=== PATIENT | male | born 1960 | race Caucasian/White ===

== ENCOUNTER 2020-05-15 06:15 | Day surgery (SDC) | payer OTHER ==
[~2020-05-15] VITALS: Ht 182.9 cm; Wt 109.8 kg
[~2020-05-15 06:15] MED LIST: EFFEXOR XR150 MG PO; GLIPIZIDE ER2.5 MG PO; GLUCOPHAGE1000 MG PO; NORCO 10-325 T1 EACH PO; TRIBENZOR 40-51 EAC1 PO; WELLBUTRIN XL150 MG PO
--- NOTE | 2020-05-15 09:24 | OR ---
[facility] [address], [place] [address] Signed DATE OF OPERATION: 05/15/2020 SURGEON: Bel Lemon MD PREOPERATIVE DIAGNOSIS: Paternal grandmother with colon cancer in her 70s. POSTOPERATIVE DIAGNOSES: 1. Minimal sigmoid diverticulosis. 2. Minimal internal and external hemorrhoids. PROCEDURE: Colonoscopy without biopsy. ESTIMATED BLOOD LOSS: None. INDICATIONS: Sedrick is a 59-year-old gentleman, asked to see me for a colonoscopy. His paternal grandmother had colon cancer in her 70s. Tab underwent a colonoscopy at age 39 for what sounds like an anal fissure. Otherwise, he describes a sphincterotomy. He has no lower GI complaints currently. In the office, I gave Sedrick a booklet on colonoscopy. We looked at the nature of the test along with the risks including, but not limited to gas bloating, crampy abdominal pain, bleeding, perforation requiring surgery, and missed diagnosis. We also discussed the need for IV conscious sedation. He had expressed understanding and wished to proceed. DESCRIPTION OF PROCEDURE: Sedrick was taken into our endoscopy suite and placed in the left lateral decubitus position. He was given a total of 6 mg of Versed and 100 mcg of fentanyl. A digital rectal exam was performed and he has good sphincter tone. He does have a small external hemorrhoid tissue. His prostate is enlarged and indurated and slightly more prominent on the left than the right. The adult colonoscope was then introduced and advanced all around into the cecum under direct visualization of camera without difficulty. His prep was slightly below average. Unfortunately, it was extended from the cecum all the way back to the anus. Consequently, he should consider a double bowel prep in the future. The scope was slowly withdrawn. We saw few diverticula in the left sigmoid colon. They were small to moderate in size, few in number, and scattered about. The rectum itself was unremarkable. Upon retroflexion of scope, he has very small internal hemorrhoid columns as well. After this, the gas was suctioned out and the colonoscope removed. Electronically Signed By: BEL LEMON MD 05/15/20 0924 PATIENT NAME: SEDRICK PERKINS OPERATIVE REPORT DATE OF : 60 REPORT #: [id number] PHYSICIAN: BEL LEMON MD PCP: GIAN SOSA MD REPORT IS CONFIDENTIAL AND NOT TO BE RELEASED WITHOUT AUTHORIZATION [facility] [address], [place] [address] Signed Sedrick tolerated the procedure quite well. RECOMMENDATIONS: I will see Tab back in 5 years for repeat colonoscopy due to his family history. Bel Lemno MD ALB/MODL /[id number] cc: MD Bel Sommer MD Copies: GIAN SOSA MD, ANDREW L MD ~ Electronically Signed By: BEL LEMON MD 05/15/20 0924 PATIENT NAME: SEDRICK PERKINS HANNA OPERATIVE REPORT DATE OF : 60 REPORT #: [id number] PHYSICIAN: BEL LEMON MD PCP: GIAN SOSA MD REPORT IS CONFIDENTIAL AND NOT TO BE RELEASED WITHOUT AUTHORIZATION
== END 2020-05-15 08:46 | disposition home or self-care (01) ==
LOC: OPS 06:15 → DS 06:15 → OPS 06:45
PROVIDERS: Colon & Rectal Surgery
PROC: 0DJD8ZZ Inspection of Lower Intestinal Tract, Via Natural or Artificial Opening Endoscopic (ICD-10-PCS; principal; 2020-05-15 06:45)
DX: Z12.11 Encounter for screening for malignant neoplasm of colon (principal); K64.8 Other hemorrhoids; K64.4 Residual hemorrhoidal skin tags; K57.30 Diverticulosis of large intestine without perforation or abscess without bleeding; Z80.0 Family history of malignant neoplasm of digestive organs; Z79.899 Other long term (current) drug therapy; Z79.84 Long term (current) use of oral hypoglycemic drugs
CPT/HCPCS: 99153; G0500; J2250; J3010; J7121

== ENCOUNTER 2020-06-15 07:19 | Emergency (ER) | payer OTHER ==
[~2020-06-15] VITALS: Ht 182.9 cm; Wt 109.8 kg
--- OUTSIDE RECORDS SUMMARY | ~2020-06-15 | XMS | Encounter Summary ---
Demographics + + + | Address | [address] | | | [place] [address] | + + + | Home Phone | | + + + | Preferred Language | Unknown | + + + | Marital Status | | + + + | Restorationism Affiliation | Unknown | + + + | Race | Unknown | + + + | Ethnic Group | Unknown | + + + Author + + + | Author | [facility] | | | and [place] | + + + | Organization | [facility] | | | and [place] | + + + | Address | Unknown | + + + | Phone | Unavailable | + + + Support + + +---------+ + | Name | Relationship | Address | Phone | + + +---------+ + | Per Pt None To List | ECON | Unknown | Unavailable | + + +---------+ + Care Team Providers + +------+ + | Care Watch Guard Gate Name | Role | Phone | + +------+ + PCP | Unavailable | + +------+ + Encounter Details +--------+ + + + + | Date | Type | Department | Care Team | Description | +--------+ + + + + | 04/26/ | [facility] | [facility] | Vlad Watson | | | 2001 | Encounter | MED CTR SLEEP | MD Sly [address] | | | | | [place] [address] | [facility] | | | | | [place] | [place] [address] | | | | | [address] | [phone] | | | | | [phone] | | | +--------+ + + + + Social History + +-------+ +--------+------+ | Tobacco Use | Types | Packs/Day | Years | Date | | | | | Used | | + +-------+ +--------+------+ | Never Assessed | | | | | + +-------+ +--------+------+ + + + | Sex Assigned at | Date Recorded | | | | + + + | Not on file | | + + + documented as of this encounter Plan of Treatment Not on filedocumented as of this encounter Visit Diagnoses Not on filedocumented in this encounter"
--- OUTSIDE RECORDS SUMMARY | ~2020-06-15 | XMS | Clinical Summary ---
Demographics + + + | Address | [address] | | | [place] [address] | + + + | Home Phone | | + + + | Preferred Language | Unknown | + + + | Marital Status | | + + + | Denominational Affiliation | Unknown | + + + | Race | Unknown | + + + | Ethnic Group | Unknown | + + + Author + + + | Author | [facility] | | | and [place] | + + + | Organization | [facility] | | | and [place] | [...] Team Providers + +------+ + | Care Information Systems Security Officer Name | Role | Phone | + +------+ + PCP | Unavailable | + +------+ + Allergies Not on File Medications Not on file Active Problems Not on file Social History + +-------+ +--------+------+ | Tobacco [...] on file | | + + + Last Filed Vital Signs Not on file Plan of Treatment + + +-------+ + | Health Maintenance | Due Date | Last | Comments | | | | Done | | + + +-------+ + | Vaccine: | | | | | Dtap/Tdap/Td (1 - | 9 | | | | Tdap) | | | | + + +-------+ + | Vaccine: Zoster (1 | | | | | of 2) | 0 | | | + + +-------+ + | Vaccine: Influenza | | | | | (#1) | 0 | | | + + +-------+ + Results Not on filefrom Last 3 Months"
--- OUTSIDE RECORDS SUMMARY | ~2020-06-15 | XMS | Encounter Summary ---
Demographics + + + | Address | [address] | | | [place] [address] | + + + | Home Phone | | + + + | Preferred Language | Unknown | + + + | Marital Status | | + + + | Synagogue Affiliation | Unknown | + + + | Race | Unknown | + + + | Ethnic Group | Unknown | + + + Author + + + | Author | [facility] | | | and [place] | + + + | Organization | [facility] | | | and [place] | [...] Team Providers + +------+ + | Care In School Suspension Aide Name | Role | Phone | + +------+ + PCP | Unavailable | + +------+ + Encounter Details +--------+ + + + + | Date | Type | Department | Care Team | Description | +--------+ + + + + | 05/14/ | [facility] | [facility] | Vlad Watson | | | 2001 | Encounter | MED CTR SLEEP | MD Sly [address] | | | | | [place] [address] | [place] [facility] | | | | | [place] | [place] [address] | | | | | [address] | [phone] | | | | | [phone] | | | +--------+ + + + [...]
--- OUTSIDE RECORDS SUMMARY | ~2020-06-15 | XMS | Encounter Summary ---
Demographics + + + | Address | [address] | | | [place] [address] | + + + | Home Phone | | + + + | Preferred Language | Unknown | + + + | Marital Status | | + + + | Jew Affiliation | Unknown | + + + | Race | Unknown | + + + | Ethnic Group | Unknown | + + + Author + + + | Author | [facility] | | | and [place] | + + + | Organization | [facility] | | | and [place] [...] Team Providers + +------+ + | Care Cosmetician Apprentice Name | Role | Phone | + +------+ + PCP | Unavailable | + +------+ + Encounter Details +--------+ + + + + | Date | Type | Department | Care Team | Description | +--------+ + + + + | 01/27/ | Hospital | [facility] | | | | 2003 - | Encounter | MED CTR CANCER | | | | | | [place] [address] | | | | 05/04/ | | [place] | | | | 2003 | | [address] | | | | | | [phone] | | | +--------+ + + + [...]
--- OUTSIDE RECORDS SUMMARY | ~2020-06-15 | XMS | Encounter Summary ---
Demographics + + + | Address | [address] | | | [place] [address] | + + + | Home Phone | | + + + | Preferred Language | Unknown | + + + | Marital Status | | + + + | Sikh Affiliation | Unknown | + + + | Race | Unknown | + + + | Ethnic Group | Unknown | + + + Author + + + | Author | [facility] | | | and [place] | + + + | Organization | [facility] | | | and [place] [...] Team Providers + +------+ + | Care Clamp Carrier Operator Name | Role | Phone | + +------+ + PCP | Unavailable | + +------+ + Encounter Details +--------+ + + + + | Date | Type | Department | Care Team | Description | +--------+ + + + + | 06/05/ | Hospital | [facility] | Gabriele Love MD | | | 2000 | Encounter | MED CTR GENERIC OP | [address] | | | | | CONV DEPT [address] | [address] | | | | | [place], | [address] | | | | | [place] [address] | | | | | | [phone] | | | +--------+ + + + [...]
--- OUTSIDE RECORDS SUMMARY | 2020-06-15 07:22 | XMS ---
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 FAMILY PHONE: [phone] Zacarias has no Care Guidelines for this patient. Nataly VISIT COUNT (12 MO.) 1 [facility] TOTAL 1 NOTE: Visits indicate total known visits. ED/UCC VISIT TRACKING (12 MO.) 06/15/2020 07:19 [facility] [place] TYPE: Emergency COMPLAINT: - CONSTIPATION, BACK PAIN INPATIENT VISIT TRACKING (12 MO.) No inpatient visits to display in this time frame [email or web address]
[2020-06-15] MEDS ORDERED: GOLYTELY SOLU4000 ML PO (08:57)
[2020-06-15] MEDS ORDERED: LACTULOSE10 GM/15 M PO (08:57)
[2020-06-15] MEDS ORDERED: ZOFRAN4 MG PO (08:57)
== END 2020-06-15 09:37 | disposition home or self-care (01) ==
LOC: ED 07:19
DX: K59.00 Constipation, unspecified (principal); Z88.5 Allergy status to narcotic agent; Z79.899 Other long term (current) drug therapy; Z79.84 Long term (current) use of oral hypoglycemic drugs
CPT/HCPCS: 74018; 99283-25

== ENCOUNTER 2025-07-08 11:55 | Emergency (ER) | payer MEDICARE, OTHER ==
[~2025-07-08] VITALS: Ht 182.9 cm; Wt 104.0 kg
[~2025-07-08 11:55] MED LIST changes: +CYCLOBENZAPRINE10 MG PO; +GOLYTELY SOLU4000 ML PO; +LACTULOSE10 GM/15 M PO; +PERCOCET 5-3251 EACH PO; +ZOFRAN4 MG PO
--- OUTSIDE RECORDS SUMMARY | 2025-07-08 12:02 | XMS ---
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 Zacarias has no Care Guidelines for this patient. [facility] NOTE: Visits indicate total known visits. ED/[facility] VISIT TRACKING (12 MO.) [facility] COMPLAINT: - BACK PAIN 07/03/2025 05:[address] 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
[2025-07-08] MEDS ORDERED: OLMESARTAN-HCT1 EAC1 PO (15:03)
[2025-07-08] MEDS ORDERED: AMLODIPINE BESYL5 MG PO (15:04)
[2025-07-08] MEDS ORDERED: PRAZOSIN HCL2 MG PO (15:04)
[2025-07-08] MEDS ORDERED: SIMVASTATIN20 MG PO (15:04)
[2025-07-08] MEDS ORDERED: diazePAM 5 MG TAB PO ONE (16:45)
[2025-07-08] MEDS ORDERED: KETOROLAC TROMETHAMINE 60 MG/2 ML VIAL IM ONE (16:45)
[2025-07-08] MEDS ORDERED: ACETAMINOPHEN 500 MG TAB PO ONE (17:00)
[2025-07-08] MEDS ORDERED: VALIUM5 MG PO (19:09)
[2025-07-08] MEDS ORDERED: LORazepam 1 MG HOME.PACK PO ONE (19:30)
[2025-07-08 19:37] VITALS: BP 130/86
== END 2025-07-08 19:33 | disposition home or self-care (01) ==
LOC: ED 11:55
DX: M54.6 Pain in thoracic spine (principal); M54.50 Low back pain, unspecified; M62.830 Muscle spasm of back; I10 Essential (primary) hypertension; Z88.5 Allergy status to narcotic agent; Z79.899 Other long term (current) drug therapy
CPT/HCPCS: 96372; 99283; A9270; J1885